=== PATIENT | male | born 1965 | race Two or more races ===

== ENCOUNTER 2018-12-29 18:17 | Emergency (ER) | payer SELFPAY ==
[~2018-12-29] VITALS: Ht 167.6 cm; Wt 72.5 kg
--- NOTE | 2018-12-29 19:04 | NUR ---
PT MEDICATED PER ORDERS. XR AT BS.
--- NOTE | 2018-12-29 19:34 | NUR ---
BP 208/111 AFTER CLONIDINE; ER SCRIPT SUPERVISOR AWARE.
[2018-12-29] MEDS ORDERED: LISINOPRIL 10 MG TABLET ONE (19:37)
--- NOTE | 2018-12-29 19:40 | NUR ---
PT MEDICATED PER ORDERS. UNDERSTANDS POC. L LEG WOUND RE-DRESSED BY POLISHER AND BUFFER.
--- NOTE | 2018-12-29 19:51 | NUR ---
Task RN: Glu 176. Pt sitting up on gurney, family at bedside, no complaints at this time.
[2018-12-29] MEDS ORDERED: LISINOPRIL 20 MG TABLET PO ONE (20:00)
--- NOTE | 2018-12-29 20:15 | NUR ---
Task RN: BP improved, denies pain, denies ORTIZ, resting comfortably on gurney.
[2018-12-29 20:34] VITALS: BP 152/82
--- NOTE | 2018-12-29 20:35 | NUR ---
D/C INSTRUCTIONS, MEDS & F/U APPT RV'WD WITH PT AND FAMILY, THEY VERBALIZE UNDERSTANDING. RX GIVEN X1. WOUND CARE INSTRUCTIONS RV'WD WITH PT. PT AMBULATED OUT OF ED WITH FAMILY WITHOUT DIFFICULTY.
== END 2018-12-29 20:37 | disposition home or self-care (01) ==
LOC: ED 20:31
DX: S80.872A Other superficial bite, left lower leg, initial encounter (principal); L03.116 Cellulitis of left lower limb; I10 Essential (primary) hypertension; E11.9 Type 2 diabetes mellitus without complications; W54.0XXA Bitten by dog, initial encounter; Y93.89 Activity, other specified; Y92.89 Other specified places as the place of occurrence of the external cause; Y99.8 Other external cause status
CPT/HCPCS: 82962; 99284